=== PATIENT | female | born 1995 | race Caucasian/White ===

== ENCOUNTER 2023-02-11 08:55 | Outpatient (CLI) | payer OTHER, SELFPAY ==
[2023-02-11 09:00] VITALS: BP 137/90; PULSE 90; TEMP 36.1
[2023-02-11 09:15] VITALS: BP 139/95; PULSE 93
[2023-02-11 09:30] VITALS: BP 138/84; PULSE 80
[2023-02-11 09:49] LABS: Basophils Absolute Auto 0.1 K/mm3 (0.0-0.1); Basophils Percent Auto 0.5 % (0.2-1.2); Eosinophils Absolute Auto 0.2 K/mm3 (0-0.3); Eosinophils Percent Auto 1.2 % (0-4.4); Hematocrit 37.5 % (37.0-47.0); Hemoglobin 12.6 g/dL (12.0-15.0); Immature Granulocyte Percent A 2.3 % (0-0.5); Lymphocytes Absolute Auto 2.11 K/mm3 (0.9-3.2); Lymphocytes Percent Auto 16.1 % (18.3-44.2); Mean Corpuscular HGB Conc 33.6 g/dl (32-36); Mean Corpuscular Hemoglobin 31.2 pg (26-34); Mean Corpuscular Volume 92.8 fl (80-100); Mean Platelet Volume 12.6 fl (7.4-10.4); Monocytes Absolute Auto 0.7 K/mm3 (0.1-0.6); Monocytes Percent Auto 5.4 % (2.6-8.5); Neutrophils Absolute Auto 9.8 K/mm3 (1.3-6.7); Neutrophils Percent Auto 74.5 % (45.5-73.1); Platelet Count Result 156 k/mm3 (150-375); Red Blood Count 4.04 M/mm3 (4.2-5.4); Red Cell Distribution Width 12.9 % (11.5-14.5); White Blood Count 13.1 K/mm3 (4.5-10.0)
[2023-02-11 09:53] VITALS: BP 146/95; PULSE 85
--- NOTE | 2023-02-11 09:57 | PC.NURSE ---
To OB for PIH evaluation. Had elevated blood pressure in MD office prior to arrival.
[2023-02-11 10:02] LABS: Alanine Aminotransferase 18 U/L (6-35); Albumin Level 3.8 g/dL (3.5-5.1); Alkaline Phosphatase 138 U/L (38-126); Anion Gap 11 mmol/L (8-16); Aspartate Amino Transferase 23 U/L (14-36); Bilirubin,Total 0.5 mg/dL (0.2-1.3); Blood Urea Nitrogen 8 mg/dL (7-17); Calcium 9.1 mg/dL (8.4-10.2); Carbon Dioxide 20 mmol/L (22-30); Chloride 104 mmol/L (98-107); Estimated Glomerular Filt Rate > 60; Glucose 103 mg/dL (65-110); Potassium 3.8 mmol/L (3.4-5.0); Sodium 135 mmol/L (137-145)
[2023-02-11 10:03] LABS: Creatinine Urine 19.8 mg/dL; Total Protein Urine Random 16 mg/dL; Ur Ttl Prot Creatinine Ratio 0.81 mg/mg (0-0.20)
[2023-02-11 10:20] VITALS: BP 129/84; PULSE 73
[2023-02-11 10:21] LABS: Appearance Urine Cloudy (Clear); Bacteria Urine 1+ /hpf; Bilirubin Urine Negative (Negative); Blood Urine Negative (Negative); Color Urine Yellow (Yellow); Glucose Urine UA Negative (Negative); Ketones Urine Negative (Negative); Leukocyte Esterase Ur 3+ LEU/UL (NEGATIVE); Need Manual Microscopic Reviewed; Nitrate Urine Negative (Negative); Non Pathogenic Casts 0-2; Protein Urine Negative (Negative); RBC Urine 0-2 /hpf (0-2); Specific Grav Ur 1.004 (1.001-1.035); Squamous Epithelial Cell Urine Moderate /hpf (Few); Urobilinogen Urine 0.2 mg/dL (<2.0); WBC Urine >100 /hpf (0-3); pH Urine 6.5 (5.0-9.0)
[2023-02-11 10:29] LABS: Add Urine Microscopic? YES
--- NOTE | 2023-02-11 10:55 | PC.NURSE ---
Dr. Dez Dodge notified of lab results. Will discharge pt home. Pt to return to office on for blood pressure check. Pt to have 24 hour urine. PIH handout discussed with pt and pt verbalized understanding.
== END 2023-02-11 10:38 | disposition home or self-care (01) ==
LOC: ANHOBOP 08:57 → ANHOBPP 08:58
PROVIDERS: PCP Family Medicine; Visit Provider Obstetrics & Gynecology
DX: O13.9 Gestational [pregnancy-induced] hypertension without significant proteinuria, unspecified trimester (principal); Z3A.00 Weeks of gestation of pregnancy not specified
CPT/HCPCS: 36415; 59025; 80053; 81001; 82570; 84156; 84550; 85025; 87086; 99199

== ENCOUNTER 2023-02-12 12:02 | Outpatient (NON) | payer OTHER, SELFPAY ==
[2023-02-12 12:36] LABS: Collection Time Urine 24 HOURS
[2023-02-12 12:42] LABS: Total Volume 24 Hour Urine 2200 ml
[2023-02-12 12:48] LABS: Creatinine Urine 60.8 mg/dL; Total Protein Urine 24 Hr 220 mg/24hr (28-141); Total Protein Urine Random 10 mg/dL
[2023-02-12 12:58] LABS: Creatinine Clearance Urine 190.6 ml/min (75-125); Patient Weight 150 Lbs
== END 2023-02-12 12:03 | disposition home or self-care (01) ==
PROVIDERS: PCP Family Medicine; Visit Provider Obstetrics & Gynecology
DX: O99.891 Other specified diseases and conditions complicating pregnancy (principal); R03.0 Elevated blood-pressure reading, without diagnosis of hypertension
CPT/HCPCS: 81050; 82575; 84156

== ENCOUNTER 2023-02-13 08:35 | Inpatient (IN) | payer OTHER, SELFPAY ==
[2023-02-13] VITALS (112 sets, daily range): BP systolic 68–201; BP diastolic 33–168; PULSE 55–148; RESP 18; TEMP 36.6–36.8; O2SAT 92–100; BMI 28.2
--- NOTE | 2023-02-13 09:18 | LDADM ---
This patient, Cass Griffiths, was admitted to Labor/Delivery/Recovery 105 on 02/13/23 at 08:35. Plans for labor, pain management and were discussed with patient. Patient/family oriented to hospital policies and general routines including ID bracelet, bed and alarms, visiting hours, pain management, procedures, bathroom and other care routines, personal items, smoking policy, room service/diet and guest tray routines, security routines, and visiting hours. Patient/Family are encouraged to report perceived risks to care and to ask questions if they do not understand what they are told or what they should do. See OBIX for further documentation.
[2023-02-13 09:26] LABS: Basophils Absolute Auto 0.1 K/mm3 (0.0-0.1); Basophils Percent Auto 0.4 % (0.2-1.2); Eosinophils Absolute Auto 0.1 K/mm3 (0-0.3); Eosinophils Percent Auto 0.5 % (0-4.4); Hematocrit 36.8 % (37.0-47.0); Hemoglobin 12.5 g/dL (12.0-15.0); Immature Granulocyte Absolute 0.27 K/mm3 (0.00-0.031); Immature Granulocyte Percent A 2.1 % (0-0.5); Lymphocytes Absolute Auto 2.14 K/mm3 (0.9-3.2); Lymphocytes Percent Auto 16.3 % (18.3-44.2); Mean Corpuscular Hemoglobin 31.5 pg (26-34); Mean Corpuscular Volume 92.7 fl (80-100); Mean Platelet Volume 12.6 fl (7.4-10.4); Monocytes Absolute Auto 0.8 K/mm3 (0.1-0.6); Monocytes Percent Auto 6.1 % (2.6-8.5); Neutrophils Absolute Auto 9.8 K/mm3 (1.3-6.7); Neutrophils Percent Auto 74.6 % (45.5-73.1); Platelet Count Result 164 k/mm3 (150-375); Red Blood Count 3.97 M/mm3 (4.2-5.4); Red Cell Distribution Width 12.9 % (11.5-14.5); White Blood Count 13.1 K/mm3 (4.5-10.0)
[2023-02-13 09:35] LABS: Alanine Aminotransferase 17 U/L (6-35); Albumin Level 3.9 g/dL (3.5-5.1); Alkaline Phosphatase 142 U/L (38-126); Anion Gap 7 mmol/L (8-16); Aspartate Amino Transferase 24 U/L (14-36); Bilirubin,Total 0.5 mg/dL (0.2-1.3); Blood Urea Nitrogen 7 mg/dL (7-17); Calcium 9.2 mg/dL (8.4-10.2); Carbon Dioxide 22 mmol/L (22-30); Chloride 107 mmol/L (98-107); Estimated CRCL calculation 128 ml/min; Estimated Glomerular Filt Rate > 60; Glucose 91 mg/dL (65-110); Potassium 4.1 mmol/L (3.4-5.0); Sodium 136 mmol/L (137-145); Uric Acid 4.7 mg/dL (2.5-7.5)
--- NOTE | 2023-02-13 09:38 | PM.IMHP ---
H&P: HPI History of Present Illness Date/Time: 02/13/23 09:38 Chief Complaint: Elevated blood pressure at term Narrative: this is a 28-year-old 1 para 0 at 37 weeks gestation confirmed by early ultrasound who presents for induction of labor secondary to elevated protein in the urine at 2200/24 hours elevated blood pressure headaches and hyper reflexia. She is negative for group B strep and prior to the these last 2 visits her blood pressures were normal PMF Family History Family History Other Patient denies significant medical history Social History Social History Smoking status: Never smoker Substance use: never Lack of Transportation: No Lack of Food: Never True Current Housing: I Have Housing Concerned About Future Housing: No Difficulty Paying Gas/Electric Bills: No Difficulty Paying for Meds: No Currently Unemployed: No Education: Master's Degree or Higher Difficulty w/ Childcare or Family Care: No Spiritual care concerns: No Meds Home Medications and Allergies Home Medications Medication Instructions Recorded Confirmed Type cetirizine 10 mg tablet (Zyrtec) 10 mg PO DAILY 02/06/23 02/06/23 History montelukast 10 mg tablet 10 mg PO DAILY 02/06/23 02/06/23 History (Amritir) prenat.vits,anthony,[id number] 1 tablet DAILY 02/06/23 02/06/23 History Allergies Allergy/AdvReac Type Severity Reaction Status Date / Time No Known Allergies Allergy Verified 02/06/23 14:38 Vital Signs Vital Signs - 24 hr 02/13/23 09:17 02/13/23 09:31 02/13/23 09:18 Pulse Rate 95 92 Blood Pressure 138/84 127/93 H Oxygen Delivery Room Air Exam Const: General: cooperative, healthy appearing, comfortable and well groomed Orientation/consciousness: oriented to person, oriented to place and oriented to time HENMT: Head: normal to inspection Resp: Effort & Inspection: normal respiratory effort Cardio: Rate: regular rate Rhythm: regular rhythm Heart sounds: S1 normal heart sound present and S2 normal heart sound present GI: Inspection: normal to inspection ( gravid soft uterus) Auscultation: normal bowel sounds : External Female Exam: normal external appearance Speculum Exam - Vagina: normal appearance of the vagina Speculum Exam - Cervix: normal appearance of the cervix ( cervix 4/ 80/-1. AROM clear. FHT is reassuring) H&P: Results Labs Labs: BMP 02/13/23 08:53 Sodium 136 L Potassium 4.1 Chloride 107 Carbon Dioxide 22 BUN 7 Creatinine 0.50 L Glucose 91 Calcium 9.2 Liver Function 02/13/23 Range/Units 08:53 Total Bilirubin 0.5 (0.2-1.3) mg/dL AST 24 (14-36) U/L ALT 17 (6-35) U/L Alkaline Phosphatase 142 H (38-126) U/L Albumin 3.9 (3.5-5.1) g/dL Assessment and Plan Assessment and plan (1) Gestational hypertension: Code(s): O13.9 - Gestational [-induced] hypertension without significant proteinuria, unspecified trimester Status: Acute Plan medical induction of labor. Spontaneous vaginal delivery is expected. She is an epidural candidate. [facility] labs pending
[2023-02-13] MEDS: LACTATED RINGERS 1,000 ML 125 ML IV CONT ×3 (09:45→11:40)
--- NOTE | 2023-02-13 10:19 | WPDANESEPP ---
Anes - Eval Pre Procedure Procedure: Labor Epidural Date/Time: 02/13/23 10:19 Surgeon: Wilfrido Preop Diagnosis: Pain during Labor Pre Op Diagnosis: IOL Patient Data Age: 28 Gender: F Height: 1.57 m Weight: 70 kg Last Vital Signs Pulse 92 02/13/23 09:31 BP 127/93 H 02/13/23 09:31 O2 Del Method Room Air 02/13/23 09:18 Allergies Allergy/AdvReac Type Severity Reaction Status Date / Time No Known Allergies Allergy Verified 02/06/23 14:38 Home Medications Medication Instructions Recorded Confirmed Type cetirizine 10 mg tablet (Zyrtec) 10 mg PO DAILY 02/06/23 02/06/23 History montelukast 10 mg tablet 10 mg PO DAILY 02/06/23 02/06/23 History (Singulair) prenat.vits,anthony,[id number] 1 tablet DAILY 02/06/23 02/06/23 History Laboratory Tests 02/13/23 02/13/23 02/13/23 08:53 08:53 08:53 WBC 13.1 K/mm3 H K/mm3 (4.5-10.0) RBC 3.97 M/mm3 L M/mm3 (4.2-5.4) Hgb 12.5 g/dL g/dL (12.0-15.0) Hct 36.8 % L % (37.0-47.0) MCV 92.7 fl fl (80-100) MCH 31.5 pg pg (26-34) MCHC 34.0 g/dl g/dl (32-36) RDW 12.9 % % (11.5-14.5) Plt Count 164 k/mm3 k/mm3 (150-375) MPV 12.6 fl H fl (7.4-10.4) Immature Gran % (Auto) 2.1 % H % (0-0.5) Neut % (Auto) 74.6 % H % (45.5-73.1) Lymph % (Auto) 16.3 % L % (18.3-44.2) [place] % (Auto) 6.1 % % (2.6-8.5) Eos % (Auto) 0.5 % % (0-4.4) Baso % (Auto) 0.4 % % (0.2-1.2) Lymph # (Auto) 2.14 K/mm3 K/mm3 (0.9-3.2) [place] # (Auto) 0.8 K/mm3 H K/mm3 (0.1-0.6) Eos # (Auto) 0.1 K/mm3 K/mm3 (0-0.3) Baso # (Auto) 0.1 K/mm3 K/mm3 (0.0-0.1) Abs Immat Gran (auto) 0.27 K/mm3 H K/mm3 (0.00-0.031) Absolute Neuts (auto) 9.8 K/mm3 H K/mm3 (1.3-6.7) Absolute Nucleated RBC 0.0 K/mm3 K/mm3 (0.0-0.012) Nucleated RBC % 0.0 % % (0.0-0.2) Sodium Potassium Chloride Carbon Dioxide Anion Gap BUN Creatinine Estim Creat Clear Calc Estimated GFR Glucose Uric Acid Calcium Total Bilirubin AST ALT Alkaline Phosphatase Total Protein Albumin RPR Pending Blood Type O Positive Antibody Screen Pending 02/13/23 08:53 WBC RBC Hgb Hct MCV MCH MCHC RDW Plt Count MPV Immature Gran % (Auto) Neut % (Auto) Lymph % (Auto) [place] % (Auto) Eos % (Auto) Baso % (Auto) Lymph # (Auto) [place] # (Auto) Eos # (Auto) Baso # (Auto) Abs Immat Gran (auto) Absolute Neuts (auto) Absolute Nucleated RBC Nucleated RBC % Sodium 136 mmol/L L mmol/L (137-145) Potassium 4.1 mmol/L mmol/L (3.4-5.0) Chloride 107 mmol/L mmol/L (98-107) Carbon Dioxide 22 mmol/L mmol/L (22-30) Anion Gap 7 mmol/L L mmol/L (8-16) BUN 7 mg/dL mg/dL (7-17) Creatinine 0.50 mg/dL L mg/dL (0.7-1.0) Estim Creat Clear Calc 128 ml/min ml/min Estimated GFR > 60 (59 - ) Glucose 91 mg/dL mg/dL (65-110) Uric Acid 4.7 mg/dL mg/dL (2.5-7.5) Calcium 9.2 mg/dL mg/dL (8.4-10.2) Total Bilirubin 0.5 mg/dL mg/dL (0.2-1.3) AST 24 U/L U/L (14-36) ALT 17 U/L U/L (6-35) Alkaline Phosphatase 142 U/L H U/L (38-126) Total Protein 7.0 g/dL g/dL (6.3-8.2) Albumin 3.9 g/dL g/dL (3.5-5.1) RPR Blood Type Antibody Screen Patient hx anesthesia problems: none Family hx anesthesia problems: none Results Review: All pre-operative results and documents have been reviewed as part of th
[2023-02-13] MEDS: PHENYLEPHRINE 1,000 MCG/10 ML SYRINGE 100 MCG IV PUSH ×4 (10:59→11:27)
[2023-02-13] MEDS: ePHEDrine sulfate INJ 50 MG/ML AMPUL IV PUSH ×2 (11:22→11:24)
[2023-02-13] MEDS: OXYTOCIN 30 UNITS/NS 500 ML 30 UNITS/500 ML BAG IV CONT (12:00)
[2023-02-13 13:57] LABS: Rapid Plasma Reagin Non-Reactive (NonReactive)
[2023-02-13] MEDS: ONDANSETRON INJ 4 MG/2 ML VIAL IV PUSH (14:43)
--- NOTE | 2023-02-13 15:30 | P.PCNOB_ITS ---
OB - Delivery Note Procedure Delivery date: 02/13/23 Procedure: mil Events: Gestational Hypertension Induction method: AROM Delivery augmentation: Pitocin Delivery monitor: External FHT Route of delivery: Specimen: No Quantitative Blood Loss (ml): 60 Anesthesia type: Epidural Disposition: Floor [place] Baby Date of : 02/13/23 Time of : 15:21 Weeks of gestation at delivery: 37 gender: Female presentation: vertex position: Right Occiput Anterior Placenta delivery description: Spontaneous Cord Vessel Description: 3 Vessels score one minute: 8 score five minutes: 9
[2023-02-13] MEDS: OXYTOCIN 30 UNITS/NS 500 ML 30 UNITS/500 ML BAG 125 UNITS IV CONT (15:58)
--- NOTE | 2023-02-13 16:05 | PM.DS ---
DS: Admitting Diagnosis Discharge Date 02/15/23 Admitting Diagnosis Term /gestational hypertension DS: Discharge Diagnosis Discharge Diagnosis (1) Gestational hypertension: Code(s): O13.9 - Gestational [-induced] hypertension without significant proteinuria, unspecified trimester Status: Acute DS: Summary Hospital Course Reason for hospitalization: patient was admitted for induction of labor secondary to elevated blood pressures. She was 37 weeks by early ultrasound and was spilling large amount of protein with elevated blood pressures. Hospital Course: Patient underwent successful induction of labor spontaneous vaginal delivery of a female infant. Her hospital course was unremarkable. Her blood pressures remain stable she was up, ambulating, eating regular diet, and generally without complaints. Time Spent with Patient Time attestation: Total time spent providing and/or coordinating discharge services: Exam Const: General: cooperative, healthy appearing and comfortable Nutritional Appearance: average body habitus Orientation/consciousness: oriented to person, oriented to place and oriented to time Resp: Effort & Inspection: normal respiratory effort Cardio: Rate: regular rate Rhythm: regular rhythm Heart sounds: S1 normal heart sound present and S2 normal heart sound present GI: Inspection: normal to inspection DS: Data Data Completed and Pending Labs on day of discharge: Labs from last 24 hours 02/13/23 02/13/23 02/13/23 08:53 08:53 08:53 WBC RBC Hgb Hct MCV MCH MCHC RDW Plt Count MPV Immature Gran % (Auto) Neut % (Auto) Lymph % (Auto) Dane % (Auto) Eos % (Auto) Baso % (Auto) Lymph # (Auto) Dane # (Auto) Eos # (Auto) Baso # (Auto) Abs Immat Gran (auto) Absolute Neuts (auto) Absolute Nucleated RBC Nucleated RBC % Sodium 136 L Potassium 4.1 Chloride 107 Carbon Dioxide 22 Anion Gap 7 L BUN 7 Creatinine 0.50 L Estim Creat Clear Calc 128 Estimated GFR > 60 Glucose 91 Uric Acid 4.7 Calcium 9.2 Total Bilirubin 0.5 AST 24 ALT 17 Alkaline Phosphatase 142 H Total Protein 7.0 Albumin 3.9 RPR Non-reactive Blood Type O Positive Antibody Screen Negative 02/13/23 08:53 WBC 13.1 H RBC 3.97 L Hgb 12.5 Hct 36.8 L MCV 92.7 MCH 31.5 MCHC 34.0 RDW 12.9 Plt Count 164 MPV 12.6 H Immature Gran % (Auto) 2.1 H Neut % (Auto) 74.6 H Lymph % (Auto) 16.3 L Dane % (Auto) 6.1 Eos % (Auto) 0.5 Baso % (Auto) 0.4 Lymph # (Auto) 2.14 Dane # (Auto) 0.8 H Eos # (Auto) 0.1 Baso # (Auto) 0.1 Abs Immat Gran (auto) 0.27 H Absolute Neuts (auto) 9.8 H Absolute Nucleated RBC 0.0 Nucleated RBC % 0.0 Sodium Potassium Chloride Carbon Dioxide Anion Gap BUN Creatinine Estim Creat Clear Calc Estimated GFR Glucose Uric Acid Calcium Total Bilirubin AST ALT Alkaline Phosphatase Total Protein Albumin RPR Blood Type Antibody Screen Discharge Plan Discharge Attending physician on discharge: Nagi Glover Consulting providers: Jeny Boone ; Jose Felton Discharging Clinician: Nagi Glover Anticipated Discharge Date/Time: 02/15/23 14:35 Patient Disposition: Home, Self-Care Activity: may shower, no driving and pelvic rest Diet: heart healthy Wound Care Instructions: follow printed instructions Discharge Instructions: Education: Mom and Baby Guide Given to: Mother Follow-Up: Call your delivering provider's office for an appointment to be seen in: 6 Weeks Mom and baby should come to the [facility] for the follow-up appointment. Appointment Date/Time: February 17, 2023 at 9:00 am What to expect at your follow-up visit: Blood Pressure Check Call [phone] if you are unable to keep your appointment time. BREAST CARE: * W
[2023-02-13] MEDS: IBUPROFEN 600 MG TABLET PO (17:39)
[2023-02-13] MEDS: WITCH HAZEL 40 PADS 1 PAD TOPICAL (18:36)
[2023-02-13] MEDS: BENZOCAINE 20% AER SPR (*SP) 56 GM CAN 1 SPRAY TOPICAL (18:36)
--- NOTE | 2023-02-13 19:10 | OBPPTRN ---
Patient transferred to post room #279 via ( wheelchair ). Support person present. Oriented to unit, room, information board, rooming in, admission packet and security measures. Patient verbalizes understanding.
[2023-02-13] MEDS: ACETAMINOPHEN 325 MG TABLET 650 MG PO (20:45)
[2023-02-14] VITALS: BP 123/90; PULSE 85; RESP 18; TEMP 36.5; O2SAT 97
[2023-02-14] MEDS: IBUPROFEN 600 MG TABLET PO ×3 (03:46→17:44)
[2023-02-14 04:06] VITALS: BMI 26.5
[2023-02-14 04:09] VITALS: BP 128/91
[2023-02-14 05:22] LABS: Hematocrit 32.3 % (37.0-47.0); Hemoglobin 10.9 g/dL (12.0-15.0)
--- NOTE | 2023-02-14 05:35 | PM.OBPNVD ---
OB - PN: Subj Subjective Date/time seen: 02/14/23 05:35 Patient comments: no complaints and pain well controlled baby status: doing well OB - PN: Obj Data Labs 02/14/23 03:54 02/13/23 08:53 Labs: Laboratory Results - last 24 hr 02/13/23 02/13/23 02/13/23 08:53 08:53 08:53 WBC 13.1 H RBC 3.97 L Hgb 12.5 Hct 36.8 L MCV 92.7 MCH 31.5 MCHC 34.0 RDW 12.9 Plt Count 164 MPV 12.6 H Immature Gran % (Auto) 2.1 H Neut % (Auto) 74.6 H Lymph % (Auto) 16.3 L [place] % (Auto) 6.1 Eos % (Auto) 0.5 Baso % (Auto) 0.4 Lymph # (Auto) 2.14 [place] # (Auto) 0.8 H Eos # (Auto) 0.1 Baso # (Auto) 0.1 Abs Immat Gran (auto) 0.27 H Absolute Neuts (auto) 9.8 H Absolute Nucleated RBC 0.0 Nucleated RBC % 0.0 Sodium Potassium Chloride Carbon Dioxide Anion Gap BUN Creatinine Estim Creat Clear Calc Estimated GFR Glucose Uric Acid Calcium Total Bilirubin AST ALT Alkaline Phosphatase Total Protein Albumin RPR Non-reactive Blood Type O Positive Antibody Screen Negative 02/13/23 02/14/23 08:53 03:54 WBC RBC Hgb 10.9 L Hct 32.3 L MCV MCH MCHC RDW Plt Count MPV Immature Gran % (Auto) Neut % (Auto) Lymph % (Auto) [place] % (Auto) Eos % (Auto) Baso % (Auto) Lymph # (Auto) [place] # (Auto) Eos # (Auto) Baso # (Auto) Abs Immat Gran (auto) Absolute Neuts (auto) Absolute Nucleated RBC Nucleated RBC % Sodium 136 L Potassium 4.1 Chloride 107 Carbon Dioxide 22 Anion Gap 7 L BUN 7 Creatinine 0.50 L Estim Creat Clear Calc 128 Estimated GFR > 60 Glucose 91 Uric Acid 4.7 Calcium 9.2 Total Bilirubin 0.5 AST 24 ALT 17 Alkaline Phosphatase 142 H Total Protein 7.0 Albumin 3.9 RPR Blood Type Antibody Screen OB - PN A/P Plan day: 1 Plan: routine care Time Spent With Patient Time: Total time spent is greater than 50% in coordination of care (as documented) at patient's floor/unit and/or counseling patient: Time with patient: less than 15 minutes Exam Const: General: cooperative, healthy appearing and comfortable Nutritional Appearance: average body habitus Orientation/consciousness: oriented to person, oriented to place and oriented to time HENMT: Head: normal to inspection Resp: Effort & Inspection: normal respiratory effort Cardio: Rate: regular rate Rhythm: regular rhythm Heart sounds: S1 normal heart sound present and S2 normal heart sound present GI: Inspection: normal to inspection ( fundus firm below the umbilicus)
[2023-02-14] MEDS: ACETAMINOPHEN 325 MG TABLET 650 MG PO ×2 (07:00→13:25)
[2023-02-14] MEDS: DOCUSATE SODIUM 100 MG CAPSULE PO (07:00)
[2023-02-14] MEDS: MULTIVIT/MIN/PREN/FOL AC/IRON TABLET 1 TAB PO (07:00)
[2023-02-14 08:06] VITALS: BP 111/79; PULSE 85; RESP 14; TEMP 36.7; O2SAT 98
[2023-02-14] MEDS: LANOLIN (LANSINOH) 7.5 GM CREAM 1 APPLIC TOPICAL (08:18)
--- NOTE | 2023-02-14 09:40 | WPDANLDPN2 ---
Anes-Prog Note L&D Date/Time: 02/14/23 09:40 Comfortable throughout: labor and delivery Neuraxial method: epidural Epidural/Spinal procedure site: clean & non-tender Neuro status: Neuro function grossly intact. Cardiovascular status: normal Respiratory status: normal Airway patency: baseline Mental status: baseline Post-Op hydration status: normal Vital Signs: Last Vital Signs Temp 36.7 C 02/14/23 08:06 Pulse 85 02/14/23 08:06 Resp 14 02/14/23 08:06 BP 111/79 02/14/23 08:06 Pulse Ox 98 02/14/23 08:06 O2 Del Method Room Air 02/14/23 08:06 Pain score (VAS): 3/10 I/O: Intake & Output 02/13/23 02/14/23 02/14/23 23:59 07:59 15:59 Intake Total 1075 Output Total 500 Balance 575 Post-procedural complaints: none Patient feedback: Patient satisfied with anesthetic care.
[2023-02-14 11:39] VITALS: BP 120/76; PULSE 88; RESP 16; TEMP 36.7; O2SAT 97
[2023-02-14 12:45] VITALS: PULSE 88; RESP 16; O2SAT 97
--- NOTE | 2023-02-14 14:46 | PC.NURSE ---
[id number] Introductions were made, then consulted with patient to assess needs related to . Mother led the conversation with her?plans to feed?her infant and the?experience so far. Resources provided for inpatient and outpatient services with the feeding sheet, mom/baby guide and name written on the white board. Mother voiced understanding of information and will call if there is a request for assistance. [phone] Mother works well with her infant with encouragement and education. Encouraged understanding of the benefits of skin to skin (demonstrating unwrapping infant and placing upright on her chest), stimulating with massage touch, changing positions to encourage wakefulness, how to watch for early feeding cues, hand expression, responsive feeding, feeding on demand (aiming for 8-12 times in 24 hours, about every 2-3 hours), milk production, building/maintaining a milk supply, duration of feeding, signs of adequate intake/output and how to record on the feeding sheet. Many attempts were made with encouraging to latch to the breast. Infant was fed expressed colostrum and mother was encouraged to initiate pumping to protect her milk supply. Discussed the behaviors of a late infant and how to stimulate with massage touch and colostrum. Reviewed positioning and ear, shoulder, hip alignment, supporting the breast to facilitate a deep latch, asymmetrical latch (off-center), leading with the chin with a big, open, wide gape and body close to mother. Infant was unable to maintain latch. Nipple care reviewed with optimal latch and good positioning. Reminding mother of comfort measures of healing with a warm and wet washcloth to rinse breast, then leave open to air-dry as needed. Reviewed good handwashing when or touching the breast/nipples to prevent infection. Resources used to facilitate learning were used with the tool, mom and baby guide. Mother voiced understanding of skin to skin, stimulating with massage touch, responsive feedings, hand expressed colostrum, talking to infant to encourage if it has been 2 -2.5 hours since the start of the last , to call if does not latch, or if there is discomfort with . Parents voiced understanding of information, demonstrated learning and will call if there is a request for assistance. Reported to the primary RN. [phone] Breast pump provided due to ineffective . Instructions given on cleaning, care, usage, that there should be no pain, pumping schedule for milk production, collection, and storage of human milk. Parents are encouraged to record pumping schedule on the feeding sheet. Patient was assessed for correct placement, flange size, to pump for comfort and nipple stretching/stimulation for adequate milk production every 3 hours (8 times in 24 hours) 1-2 times at night. Mother voiced understanding of the education shared along with mom and baby guide for additional resource information. Reported to the primary RN.
[2023-02-14 19:40] VITALS: BP 121/86; PULSE 104; RESP 14; TEMP 36.8; O2SAT 97
[2023-02-15 00:20] VITALS: BP 114/73; PULSE 74; O2SAT 99
[2023-02-15] MEDS: IBUPROFEN 600 MG TABLET PO ×2 (01:54→13:23)
[2023-02-15 04:00] VITALS: BP 104/59
[2023-02-15 05:00] VITALS: BMI 25.9
[2023-02-15] MEDS: DOCUSATE SODIUM 100 MG CAPSULE PO (07:42)
[2023-02-15] MEDS: MULTIVIT/MIN/PREN/FOL AC/IRON TABLET 1 TAB PO (07:42)
[2023-02-15] MEDS: SIMETHICONE 80 MG TAB.CHEW PO (07:42)
[2023-02-15] MEDS: ACETAMINOPHEN 325 MG TABLET 650 MG PO (07:42)
[2023-02-15 08:30] VITALS: BP 115/74; PULSE 86; RESP 16; TEMP 36.7; O2SAT 98
--- NOTE | 2023-02-15 11:16 | PM.OBPNVD ---
OB - PN: Subj Subjective Date/time seen: 02/15/23 11:16 Narrative: Pain OK. Would like to go home. OB - PN: Obj Data Labs 02/14/23 03:54 02/13/23 08:53 OB - PN A/P Plan Comments: A: PPD#2, doing well. P: Home to f/u 6 weeks. Exam Psych: Other: AVSS ABD soft, nontender, fundus firm EXT nontender
[2023-02-15 12:00] VITALS: BP 115/62; PULSE 79; RESP 14; TEMP 36.7; O2SAT 100
[2023-02-17 09:38] VITALS: BP 131/82; PULSE 84; RESP 20; TEMP 37.1; O2SAT 99
== END 2023-02-15 14:35 | disposition home or self-care (01) | DRG 807 ==
LOC: ANHLDR 15:30 → ANHOB2 19:22
PROVIDERS: Admitting Provider Obstetrics & Gynecology; PCP Family Medicine; Visit Provider Obstetrics & Gynecology
DX: O13.4 Gestational [pregnancy-induced] hypertension without significant proteinuria, complicating childbirth (principal); Z37.0 Single live birth; Z3A.37 37 weeks gestation of pregnancy
CPT/HCPCS: 36415; 59025; 80053; 81001; 81050; 82570; 82575; 84156; 84550; 85014; 85018; 85025; 86592; 86850; 86900; 86901; 87086; 99199; A9270; J2370; J2405; J2590; J2795; J7120

== ENCOUNTER 2024-06-18 09:09 | Outpatient (CLI) | payer OTHER, SELFPAY ==
[2024-06-18 13:02] LABS: Basophils Percent Auto 0.4 % (0.2-1.2); Eosinophils Absolute Auto 0.1 K/mm3 (0-0.3); Eosinophils Percent Auto 1.2 % (0-4.4); Hematocrit 46.8 % (37.0-47.0); Hemoglobin 15.4 g/dL (12.0-15.0); Immature Granulocyte Absolute 0.02 K/mm3 (0.00-0.031); Immature Granulocyte Percent A 0.2 % (0-0.5); Lymphocytes Absolute Auto 3.05 K/mm3 (0.9-3.2); Lymphocytes Percent Auto 36.9 % (18.3-44.2); Mean Corpuscular HGB Conc 32.9 g/dl (32-36); Mean Corpuscular Hemoglobin 30.4 pg (26-34); Mean Corpuscular Volume 92.5 fl (80-100); Mean Platelet Volume 11.4 fl (7.4-10.4); Monocytes Absolute Auto 0.6 K/mm3 (0.1-0.6); Monocytes Percent Auto 6.7 % (2.6-8.5); Neutrophils Absolute Auto 4.5 K/mm3 (1.3-6.7); Neutrophils Percent Auto 54.6 % (45.5-73.1); Platelet Count Result 267 k/mm3 (150-375); Red Blood Count 5.06 M/mm3 (4.2-5.4); Red Cell Distribution Width 12.1 % (11.5-14.5); White Blood Count 8.3 K/mm3 (4.5-10.0)
[2024-06-18 13:17] LABS: Alanine Aminotransferase 12 U/L (6-35); Albumin Level 4.8 g/dL (3.5-5.1); Alkaline Phosphatase 66 U/L (38-126); Anion Gap 11 mmol/L (4-12); Aspartate Amino Transferase 46 U/L (14-36); Bilirubin,Total 1.1 mg/dL (0.2-1.3); Blood Urea Nitrogen 14 mg/dL (7-17); Calcium 9.7 mg/dL (8.4-10.2); Carbon Dioxide 26 mmol/L (22-30); Chloride 101 mmol/L (98-107); Cholesterol 169 mg/dL (0-200); Estimated Glomerular Filt Rate > 60; Glucose 87 mg/dL (65-110); HDL Direct 62 mg/dL; Potassium 4.6 mmol/L (3.4-5.0); Sodium 138 mmol/L (137-145); Triglycerides 65 mg/dL (<150)
[2024-06-18 13:27] LABS: LDL Cholesterol Direct 81 mg/dL
== END 2024-06-18 09:10 | disposition home or self-care (01) ==
LOC: ANHGOSHLAB 09:10
PROVIDERS: PCP Nurse Practitioner; Visit Provider Nurse Practitioner
DX: Z13.29 Encounter for screening for other suspected endocrine disorder (principal); Z13.220 Encounter for screening for lipoid disorders
CPT/HCPCS: 36415; 80053; 80061; 85025

== ENCOUNTER 2025-08-17 08:36 | Outpatient (CLI) | payer OTHER, SELFPAY ==
--- OUTSIDE RECORDS SUMMARY | 2025-08-17 08:48 | XMS_ITS | Encounter Summary ---
Author Organization [facility] Address 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
--- OUTSIDE RECORDS SUMMARY | 2025-08-17 08:48 | XMS_ITS | Clinical Summary ---
Author Organization [facility] Address [address] [place] [id number] Phone Care Team Providers Care Hogshead Opener Name Role Phone Unavailable Primary Care Provider Unavailabl e Allergies No known active allergies Encounters Date Type Department Care Team Description 08/16/2025 External Device Data [facility] Provider, Abstract 07/15/2025 10:20 AM CDT - 07/15/2025 11:59 PM CDT Hospital Encounter [facility] [address] [place] [address] Dez Dodge, MD Marcus Ashton, Charito Burns MD Discharge Disposition: Home or Self Care from Last 3 Months Immunizations Immunization Administration Dates Next Due INFLUENZA VACCINE QUADRIVALENT 6 MOS UP PF IM ,08/27/2021 Social History Tobacco Use Types Packs/Day Years Used Date Smoking Tobacco: Never Assessed Comments Unknown Sex and Gender Information Value Date Recorded Sex Assigned at Not on file 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 Gender Identity Not on file Sexual Orientation Not on file Plan of Treatment Health Maintenance Due Date Last Done Comments DTAP/TDAP/TD VACCINES (1 - Tdap) 2014 HEPATITIS B VACCINES (1 of 3 - 19+ 3-dose series) 2014 HPV/Cotest (21-29) 02/08/2016 HPV VACCINES (1 - 3-dose SCDM series) 2022 CERVICAL CANCER SCREENING 2025 HPV/Cotest (30-65) 2025 PAP SMEAR 2025 INFLUENZA VACCINE (#1) 2025 08/25/2023, 2020 Procedures Procedure Name Priority Date/Time Associated Diagnosis Comments XR HYSTEROSALPINGOGRAM Routine 11:02 AM CDT Infertility, female from Last 3 Months Results * XR HYSTEROSALPINGOGRAM (07/15/2025 11:02 AM CDT) Anatomical Region Laterality Modality Pelvis Computed Radiogr aphy 07/15/2025 11:0 3 AM CDT Impressions 07/15/2025 11:45 AM CDT IMPRESSION: Patent left fallopian tube. Slight dilation of the right distal fallopian tube, which appears occluded. DICTATION LOCATION: Location 1 - [facility] 07/15/2025 11:45 AM CDT HYSTEROSALPINGOGRAM DATE: 07/15/2025 11:02 AM HISTORY: See Diagnosis TECHNIQUE: After obtaining informed consent, a speculum was introduced and a catheter was passed through the cervical os using sterile technique. Water soluble contrast was injected into the uterine cavity and images were obtained. At the end of the procedure, the catheter and speculum were removed and the patient left the department in stable condition. FLUOROSCOPY TIME: 0.7 minutes REFERENCE AIR KERMA: 9.17 mGy FINDINGS: Contrast fills a normal uterine cavity, showing no evidence of a filling defect. Contrast flows into both fallopian tubes, which are normal in course. The distal end of the right fallopian tube is slightly dilated and appears occluded. Contrast spills into the peritoneal cavity on the left, with no evidence of obstruction. Procedure Note Bebo Umanzor MD - 07/15/2025 HYSTEROSALPINGOGRAM DATE: 07/15/2025 11:02 AM HISTORY: See Diagnosis TECHNIQUE: After obtaining informed consent, a speculum was introduced and a catheter was passed through the cervical os using sterile technique. Water soluble contrast was injected into the uterine cavity and images were obtained. At the end of the procedure, the catheter and speculum were removed and the patient left the department in stable condition. FLUOROSCOPY TIME: 0.7 minutes REFERENCE AIR KERMA: 9.17 mGy FINDINGS: Contrast fills a normal uterine cavity, showing no evidence of a filling defect. Contrast flows into both fallopian tubes, which are normal in course. The distal end of the right fallopian tube is slightly dilated and appears occluded. Contrast spills into the peritoneal cavity on the left, with no evidence of obstruction. IMPRESSION: Patent left fallopian tube. Slight dilation of the right distal fallopian tube, which appears occluded. DICTATION LOCATION: Location 1 - [facility] Nagi Dodge MD DIAGNOSTIC IMAGING OR DERABLES Final Result from Last 3 Months Insurance [facility] CHOICE [id number]
[2025-08-17 12:59] LABS: Hematocrit 46.8 % (37.0-47.0); Hemoglobin 15.1 g/dL (12.0-15.0); Immature Granulocyte Percent A 0.3 % (0-0.5); Lymphocytes Absolute Auto 2.19 K/mm3 (0.9-3.2); Mean Corpuscular HGB Conc 32.3 g/dl (32-36); Mean Corpuscular Hemoglobin 30.5 pg (26-34); Mean Corpuscular Volume 94.5 fl (80-100); Nucleated Red Blood Cells Absolute Auto 0.000 K/mm3 (0.0-0.012); Nucleated Red Blood Cells Perc 0.0 % (0.0-0.2); Platelet Count Result 290 k/mm3 (150-375); Red Blood Count 4.95 M/mm3 (4.2-5.4); White Blood Count 9.0 K/mm3 (4.5-10.0)
[2025-08-17 13:33] LABS: Alanine Aminotransferase 12 U/L (6-35); Albumin Level 5.0 g/dL (3.5-5.1); Alkaline Phosphatase 62 U/L (38-126); Anion Gap 12 mmol/L (4-12); Aspartate Amino Transferase 50 U/L (14-36); Bilirubin,Total 0.9 mg/dL (0.2-1.3); Blood Urea Nitrogen 15 mg/dL (7-17); Calcium 9.6 mg/dL (8.4-10.2); Carbon Dioxide 25 mmol/L (22-30); Chloride 102 mmol/L (98-107); Cholesterol 193 mg/dL (0-200); Estimated Glomerular Filt Rate > 60; Glucose 83 mg/dL (65-110); HDL Direct 76 mg/dL; Potassium 4.3 mmol/L (3.4-5.0); Sodium 139 mmol/L (137-145); Total Protein 8.1 g/dL (6.3-8.2); Triglycerides 43 mg/dL (<150)
== END 2025-08-17 08:37 | disposition home or self-care (01) ==
LOC: ANHGOSHLAB 08:37
PROVIDERS: PCP Internal Medicine; Visit Provider Nurse Practitioner
DX: Z13.220 Encounter for screening for lipoid disorders (principal); Z13.29 Encounter for screening for other suspected endocrine disorder
CPT/HCPCS: 36415; 80053; 80061; 85025

== ENCOUNTER 2025-09-06 07:02 | Outpatient (CLI) | payer OTHER, SELFPAY ==
--- OUTSIDE RECORDS SUMMARY | 2025-09-06 07:05 | XMS_ITS | Clinical Summary ---
Author Organization [facility] Address [address] [place] [id number] Phone Care Team Providers Care Manager Route Name Role Phone Unavailable Primary Care Provider Unavailabl e Allergies No known active allergies Encounters Date Type Department Care Team Description 08/30/2025 External Device Data [facility] ABSTRACTION Provider, Abstract 08/16/2025 External Device Data [facility] ABSTRACTION Provider, Abstract 07/15/2025 10:20 AM CDT - 07/15/2025 11:59 PM CDT Hospital Encounter [facility] [address] [place] [address] Dez Dodge, MD Marcus Ashton, [...] on file 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 DICTATION LOCATION: Location 1 - [facility] 07/15/2025 11:45 AM CDT HYSTEROSALPINGOGRAM DATE: 07/15/2025 [...] occluded. DICTATION LOCATION: Location 1 - [facility] Nagi Dodge MD DIAGNOSTIC IMAGING OR DERABLES Final Result from Last 3 Months Insurance [facility] CHOICE [id number]
== END 2025-09-06 07:03 | disposition home or self-care (01) ==
LOC: ANHLAB 07:03
PROVIDERS: PCP Internal Medicine; Visit Provider Obstetrics & Gynecology
DX: N97.9 Female infertility, unspecified (principal)
CPT/HCPCS: 36415; 86850; 86900; 86901

== ENCOUNTER 2025-09-08 00:23 | Day surgery (SDC) | payer OTHER, SELFPAY ==
--- NOTE | 2025-08-30 15:00 | PC.NURSE ---
[facility] has started construction of its new state of the art ER which will open Spring 2026. With this, we anticipate parking may be a challenge for some our surgical patients and families. Parking spaces are limited but are available for all Surgical, obstetrics, and ER patients sharing this lot. If you arrive and find you are having a hard time finding a parking space, please note that we understand the challenges, please drive around the hospital and park near Hospital Entrance 1. When you enter this entrance, you can ask a volunteer to direct or take you back to the surgical waiting area to check in. We appreciate everyone?s understanding of these expected challenges while we build for your future. Report to the Outpatient Waiting Room, entrance under the green pavilion located off [address], at time 0630_ on date __09/08/25_. Planned Procedure Time: _0830.? Time changes happen often and if your time is changed the preop area will call you the afternoon before. - You and your visitor will be asked to self-screen and do not enter if you have any COVID symptoms. Please call surgeon if you need to reschedule. - A mask is optional within the hospital at this time. Patients may have clear liquids (water, carbonated beverages, clear teas, apple juice) until 3 hours prior to surgery with a maximum of 20 ounces. - No food from midnight until time of surgery and no smoking, or chewing tobacco (or any form of nicotine). No chewing gum, candy or mints. - Infants may have breast milk until 4 hours before surgery, formula 6 hours prior to surgery. - Children will be allowed to drink immediately following surgery.? If applicable, please bring a bottle or sippy cup to assist with drinking. Juice, water, soda, and popsicles are readily available.? For infants on formula, please bring formula the day of surgery.? Pacifiers are allowed. Take only the following medications with a SIP of water on the morning of surgery: NONE DO NOT STOP ANY OF YOUR OTHER PRESCRIPTION MEDICATIONS PRIOR TO SURGERY EXCEPT THE FOLLOWING Hold all vitamins and supplements for 3 days per anesthesiologist. Medications to discontinue per physician Date to take last dose Please no make-up, nail korean, hairspray, perfume, deodorant, or body powder the day of surgery.? No jewelry (including any body piercings) or valuables the day of surgery, leave them at home.? Please take a shower or bath the night before, or the morning of, surgery with an antibacterial soap.? Wear comfortable, loose fitting clothing.? Children are encouraged to wear pajamas. - Jewelry must be removed prior to entering the operating room.? Rings and piercings that are not removed may be cut off. - The hospital will not accept responsibility for valuables.? - Please leave all valuables, including medications, at home the day of surgery. If you are going home after surgery, a licensed warehouse delivery driver must drive you home.? - NO public transportation without another adult if you receive anesthesia. - We recommend that an adult stay with you for 24 hours following discharge. - We also recommend that you do not drive, make important decision, drink alcoholic beverages, or take any drugs that were not prescribed by your health care provider for at least 24 hours after your discharge time. For Pediatric surgeries, we recommend two adults accompany the child home. Follow any additional instructions given to you from your surgeon. Telephone instructions given to _PATIENT_and asked if any additional questions and then verbalized understanding. Patient advised to call surgeon office or pre surgery nurse liaison [phone] if any additional questions.
--- NOTE | 2025-09-06 07:19 | PM.IMHP ---
H&P: HPI History of Present Illness Date/Time: 09/06/25 07:19 Chief Complaint: Pelvic pain Narrative: This is a 30-year-old 1 para 1 admitted for laparoscopy possible right salpingostomy versus salpingectomy chromopertubation secondary to pelvic pain and a suspected hydrosalpinx. She will also undergo chromopertubation and. She had a normal hysterosalpingogram as well. Risks and benefits of this procedure reviewed including not exclusive of , aspiration pneumonia, bleeding, transfusion, perforation injury to bowel, bladder, ureters, or other internal organs with need for open laparotomy. She received the ACOG handout entitled laparoscopy. She had all questions answered. She asked to proceed. Review of Systems Review of Systems: All systems reviewed & are unremarkable except as noted in HPI and below PMFSH Past Medical History Medical History Herpes labialis Gestational hypertension Asthma Eczema Acne Allergic rhinitis Surgical History Surgical History History of throat surgery excision lesion back of throat 05/2012 History of hernia surgery umbilical Family History Family History Father Hypertension Mother Anxiety Grandparent Diabetes mellitus Hypertension Heart disease Other Patient denies significant medical history Social History Social History Social History: Caffeine-coffee Smoking status: Never smoker Alcohol intake: current Alcohol use details: 1 PER MONTH Substance use: never Substance use type: does not use Lack of Transportation: No Lack of Food: Never True Current Housing: I Have Housing Concerned About Future Housing: No Difficulty Paying Gas/Electric Bills: No Difficulty Paying for Meds: No Currently Unemployed: No Education: Master's Degree or Higher Difficulty w/ Childcare or Family Care: No Living arrangements: with family Occupation/Education: occupation Gender identity (if verbalized by the patient): Female Sexual Orientation (if Verbalized by the Patient): Straight or Heterosexual Spiritual care concerns: No Meds Home Medications and Allergies Home Medications ?Medication ?Instructions ?Recorded ?Confirmed ?Type cetirizine 10 mg tablet (Zyrtec) 10 mg PO DAILY 03/23/23 10/14/25 History prenat.vits,anthony,qck-afuv-uyyiy 1 tablet PO DAILY 02/06/23 08/30/25 History valacyclovir 1 gram tablet 2,000 mg (2 x 1 gram) PO Q12H PRN 06/17/24 08/30/25 Rx herpes #12 tabs montelukast 10 mg tablet 10 mg PO DAILY #90 tabs 08/15/25 08/30/25 Rx albuterol sulfate 90 mcg/actuation 2 puff inhalation Q4-6H PRN 08/22/25 08/30/25 Rx aerosol inhaler shortness of breath or wheezing #8.5 grams Allergies Allergy/AdvReac Type Severity Reaction Status Date / Time No Known Allergies Allergy Verified 08/30/25 14:51 Exam Const: General: cooperative, healthy appearing and comfortable Nutritional Appearance: average body habitus Orientation/consciousness: oriented to person, oriented to place and oriented to time HENMT: Head: normal to inspection Resp: Effort & Inspection: normal respiratory effort Cardio: Rate: regular rate Rhythm: regular rhythm Heart sounds: S1 normal heart sound present and S2 normal heart sound present GI: Inspection: normal to inspection : External Female Exam: normal external appearance Speculum Exam - Vagina: normal appearance of the vagina Speculum Exam - Cervix: normal appearance of the cervix Bimanual exam- vagina & uterus: non-tender Bimanual Exam- Adnexa, other: tender on the right Assessment and Plan Assessment and plan (1) Pelvic pain: Code(s): R10.20 - Pelvic and perineal pain unspecified side Status: Acute (2) Hydrosalpinx: Code(s): N70.11 - Chronic salpingitis Status: Acute Plan Proceed with laparoscopy possible right salpingectomy possible right 2nd salpingectomy chromopertubation and diagnostic laparoscopy
[2025-09-08] VITALS (8 sets, daily range): BP systolic 94–132; BP diastolic 54–86; PULSE 89–113; RESP 14–18; TEMP 36.1–36.8; O2SAT 99–100; BMI 20.5
--- OUTSIDE RECORDS SUMMARY | 2025-09-08 00:25 | XMS_ITS | Clinical Summary ---
Author Organization [facility] Address [address] [place] [id number] Phone Care Team Providers Care Surgery Manager Name Role Phone Unavailable Primary Care Provider Unavailabl e Allergies No known active allergies Encounters Date Type Department Care Team Description 08/30/2025 External Device Data [facility] ABSTRACTION Provider, Abstract 08/16/2025 External Device Data [facility] ABSTRACTION Provider, Abstract 07/15/2025 10:20 AM CDT - 07/15/2025 11:59 PM CDT Hospital Encounter [facility] [address] [place] [id number] Dez Dodge, MD Marcus Ashton, Charito Burns [...] on file 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 DICTATION LOCATION: Location 1 - [facility] 07/15/2025 11:45 AM CDT HYSTEROSALPINGOGRAM DATE: 07/15/2025 [...] appears occluded. DICTATION LOCATION: Location 1 - [facility] Nagi Dodge MD DIAGNOSTIC IMAGING OR DERABLES Final Result from Last 3 Months Insurance [facility] CHOICE [id number]
--- NOTE | 2025-09-08 06:37 | WPDHPUPDATE1 ---
History and Physical Update Update Date/Time: 09/08/25 06:37 History and Physical has been reviewed, including an updated exam of the patient. There are NO changes in the patient's condition. Risks, benefits, and alternatives have been discussed and questions answered. Patient agrees to proceed with procedure.
--- NOTE | 2025-09-08 07:05 | WPDANESEPPF ---
Anes - Initial Pre Proc Eval Procedure: Operation Date: 09/08/25 08:30 Proposed Procedures p Diagnostic Laparoscopy, Possible Right Salpingectomy, Chromopertubation - Nagi Dodge MD Date/Time: 09/08/25 07:05 Surgeon: Nagi Dodge MD Pre Op Diagnosis: pelvic pain, right hydrosalpinx Patient Data Age: 30 Gender: F Height: Weight: Allergies Allergy/AdvReac Type Severity Reaction Status Date / Time No Known Allergies Allergy Verified 08/30/25 14:51 Home Medications ?Medication ?Instructions ?Recorded ?Confirmed ?Type cetirizine 10 mg tablet (Zyrtec) 10 mg PO DAILY 02/06/23 08/30/25 History prenat.vits,anthony,rwk-eiyf-iavua 1 tablet PO DAILY 02/06/23 08/30/25 History valacyclovir 1 gram tablet 2,000 mg (2 x 1 gram) PO Q12H PRN 06/17/24 08/30/25 Rx herpes #12 tabs montelukast 10 mg tablet 10 mg PO DAILY #90 tabs 08/15/25 08/30/25 Rx albuterol sulfate 90 mcg/actuation 2 puff inhalation Q4-6H PRN 08/22/25 08/30/25 Rx aerosol inhaler shortness of breath or wheezing #8.5 grams hydrocodone 5 mg-acetaminophen 325 1 tablet PO Q4H PRN pain #14 tabs 09/08/25 Rx mg tablet Patient hx anesthesia problems: none Family hx anesthesia problems: none Results Review: All pre-operative results and documents have been reviewed as part of the pre-operative evaluation. [facility] Past Medical History Medical History Herpes labialis Gestational hypertension Asthma Eczema Acne Allergic rhinitis Surgical History Surgical History History of throat surgery excision lesion back of throat 05/2012 History of hernia surgery umbilical Family History Family History Father Hypertension Mother Anxiety Grandparent Diabetes mellitus Hypertension Heart disease Other Patient denies significant medical history Social History Social History Social History: Caffeine-coffee Smoking status: Never smoker Alcohol intake: current Alcohol use details: 1 PER MONTH Substance use: never Substance use type: does not use Lack of Transportation: No Lack of Food: Never True Current Housing: I Have Housing Concerned About Future Housing: No Difficulty Paying Gas/Electric Bills: No Difficulty Paying for Meds: No Currently Unemployed: No Education: Master's Degree or Higher Difficulty w/ Childcare or Family Care: No Living arrangements: with family Occupation/Education: occupation Gender identity (if verbalized by the patient): Female Sexual Orientation (if Verbalized by the Patient): Straight or Heterosexual Spiritual care concerns: No Anes - Eval Final PreProcedure Day of Procedure 09/08/25 07:05 Patient weight: normal Heart: regular rate and rhythm Lungs: clear to auscultation Airway: Mallampati scale class II Neurological: alert and oriented Last oral intake: >/= 8 hours ASA classification: I Emergent: no Anesthetic plan: proceed Anesthesia type and monitoring: general ETT and standard monitoring Results Review: All pre-operative results and documents have been reviewed as part of the pre-operative evaluation. Informed Consent: The patient's anesthetic plan and its attendant risks and benefits were discussed with the patient/family/POA. Questions were solicited and answers provided to the satisfaction of the patient/family/POA.
[2025-09-08] MEDS: ACETAMINOPHEN 500 MG TABLET 1000 MG PO (08:00)
[2025-09-08] MEDS: KETOROLAC 15 MG/ML VIAL (*BKC) IV PUSH (08:00)
[2025-09-08] MEDS: LACTATED RINGERS 1,000 ML 30 ML IV CONT ×2 (08:00→09:24)
--- NOTE | 2025-09-08 08:25 | WPDHPUPDATE1 ---
History and Physical Update Update Date/Time: 09/08/25 08:25 History and Physical has been reviewed, including an updated exam of the patient. There are NO changes in the patient's condition. Risks, benefits, and alternatives have been discussed and questions answered. Patient agrees to proceed with procedure. Clarification. The patient will undergo diagnostic laparoscopy lysis of adhesions cystectomy and possible right salpingectomy
[2025-09-08 08:42] LABS: BEDSIDEPREGUCG Negative (Negative)
[2025-09-08] MEDS: SCOPOLAMINE 1 MG PATCH 1 PATCH TRANSDERM (08:45)
--- NOTE | 2025-09-08 09:06 | S_PTH ---
PATIENT: Cass Griffiths LOC: [facility] U#:[id number] AGE/SX: 30/F ROOM: RE09/08/[address]: Nagi Dodge MD : [id number] BED: DIS: 09/08/2025 SPEC #: [id number] RECD: 09/08/25 11:23 STATUS: SKYLA REQ #: [id number] VICKIE: 09/08/25 09:[address]: Nagi Glover DEPT: [facility] Surgical RECD BY: Jessica Perez ENTERED: 09/08/25 11:23 SP TYPE: Surgical OTHR DR: Alexander Figueroa DO Tissues: A - Fallopian Tube Single Procedures: Gross and Microscopic Level 2 Hematoxylin and Eosin Stain
--- NOTE | 2025-09-08 09:14 | W.PM.PROC2 ---
Procedure Note - Detailed Date of Procedure 09/08/25 Pre-op Diagnosis pelvic pain, right hydrosalpinx Post-op Diagnosis Same (With pelvic adhesions and endometriosis) Procedure Performed Laparoscopy with right salpingectomy of hydrosalpinx destruction of endometriosis lysis of adhesions and chromopertubation Surgeon Nagi Dodge MD Anesthesia General Indications 30-year-old 1 para 1 with infertility and hydrosalpinx pelvic pain Findings The right ovary was surgically absent. There was a hydrosalpinx on right which was removed. Small areas of endometriosis and powder Sorto blister formed along the cul-de-sac and uterosacral ligaments. Normal-appearing left ovary and tube adhesions from the colon to the left lateral sidewall. The fallopian tube was opened. On the left Description of Procedure Patient was prepped and draped in the normal sterile fashion placed in the dorsal lithotomy position. Under excellent general trach anesthesia weighted speculum placed posterior fornix vagina. Anterior lip of the cervix grasped with a single-tooth tenaculum. Goss's cannula inserted the cervix attached to the single-tooth to be used later for uterine manipulation. The bladder emptied of clear urine the weighted speculum was removed. The gloves were changed. Supraumbilical incision made the Veress needle passed in the abdomen. Abdomen filled with CO2 gas [id number]. The 5mm trocar advanced with the Optiview and no injury seen. Patient placed in Trendelenburg and a suprapubic incision made. The 5mm trocar advanced under direct visualization assuring no injury. A left lower quadrant incision made and the 5mm trocar advanced under direct visualization adhesions were seen from the colon to the left lateral sidewall and these were sharply dissected using the LigaSure with occasional cautery. The left fallopian tube and ovary appeared grossly within normal limits as did the uterus. The right fallopian tube contained a hydrosalpinx. The right ovary was absent the appendix was somewhat adhesed nearby. Small areas of powder burn and blistered endometriosis were seen along the right left uterosacral ligament. The small areas of endometriosis were cauterized at 35 w per 2nd with monopolar cautery. Decision was made to remove that right fallopian tube as it contained that hydrosalpinx using sharp dissection and the LigaSure was serially clamped burned cut and then removed through the left lower quadrant incision. Irrigation then undertaken to clear chromic to per tube a parr then was undertaken initially was very difficult to get the methylene blue through the left fallopian tube but eventually after forceful pushing this, emptied the furrowed Fleet flowed freely. Irrigation undertaken until clear. Photo documentation undertaken. The lower sites removed. The gas removed from the abdomen. The upper sites removed. The incisions closed with 4 Monocryl and glue. Patient was awakened went recovery satisfactory condition. All sponge, needle, instrument counts were correct. There were no immediate complications Estimated Blood Loss 5 Drains No Packing No Pathology Yes Complications No immediate complications Condition Stable Disposition PACU
[2025-09-08] MEDS: fentaNYL CITRATE INJ (*CRX) 100 MCG/2 ML VIAL 25 MCG IV PUSH ×2 (09:39→09:42)
[2025-09-08] MEDS: oxyCODONE HCL (*CRX) 5 MG TAB IR PO (10:23)
== END 2025-09-08 11:13 | disposition home or self-care (01) ==
PROVIDERS: PCP Internal Medicine; Visit Provider Obstetrics & Gynecology
PROC: (CPT 49320; principal; 2025-09-08 08:30)
DX: N70.11 Chronic salpingitis (principal); N80.3C3 Endometriosis of bilateral uterosacral ligament(s), unspecified depth; N73.6 Female pelvic peritoneal adhesions (postinfective); N97.9 Female infertility, unspecified; R10.20 Pelvic and perineal pain unspecified side
CPT/HCPCS: 58661; 58662; 88302; A9270; J0690; J1100; J1885; J2003; J2250; J2405; J2704; J3010; J7030; J7120; Q9968